=== PATIENT | female | born 1925 | race Caucasian/White ===

== ENCOUNTER 2017-02-02 17:39 | Inpatient (IN) | payer OTHER, MEDICAID, MEDICARE ==
[~2017-02-02] VITALS: Ht 160 cm; Wt 60.0 kg
[2017-02-02] VITALS (10 sets, daily range): BP systolic 159–235; BP diastolic 70–112; PULSE 71–98; RESP 17–22; TEMP 97–98.2; O2SAT 96–99
[2017-02-02] MEDS ORDERED: PARO10TA2 PO (18:02)
[2017-02-02] MEDS ORDERED: LISI-519 PO (18:02)
[2017-02-02] MEDS ORDERED: LEVO75TA3 PO (18:02)
[2017-02-02] MEDS ORDERED: SODIUM CHLOR 0.9% 1000 ML INJ 1,000 ML IV SCH (18:41)
[2017-02-02] MEDS ORDERED: SODIUM CHLORIDE 0.9% FLUSH 5 ML FLUSH IV FLUSH PRN ×2 (18:45→21:15)
--- NOTE | 2017-02-02 19:13 | PD ---
HPI Chief Complaint: Neuro Symptoms/ Deficits Time Seen by Provider: 17:52 Travel History International Travel<30 days: No Contact w/Intl Traveler<30days: No Traveled to known affect area: No History of Present Illness HPI 89-year-old female history coronary artery disease, aortic stenosis, who presents here with intermittent episodes of confusion. Patient also noted to have an elevated blood pressure. According to the family members and the patient, last Thursday had a similar episode and was taken to [facility]. At that time they found her heart rate to be normal but a blood pressure of 200 systolic and 100 diastolic. She was admitted to the hospital and blood pressure was normalized. She was doing well up until today when she had recurrent episodes. Blood pressure was checked and found to be 190 systolic and 100 diastolic. She had episode of confusion about 4 hours prior to arrival. She has resolved the episodes of confusion. [facility] Past Medical History Dementia: Yes Hypertension: Yes Thyroid Disease: Yes Past Surgical History Hysterectomy: Yes Other Surgery: Yes (plate in neck) Social History Alcohol Use: Yes Tobacco Use: No Substance Use: No Allergies-Medications (Allergen,Severity, Reaction): Coded Allergies: No Known Allergies (Unverified , 02/02/17) Reported Meds & Prescriptions Reported Meds & Active Scripts Active Reported Paroxetine (Paroxetine HCl) 10 Mg Tab 10 Mg PO DAILY Levothyroxine (Levothyroxine Sodium) 75 Mcg Tab 75 Mcg PO DAILY Lisinopril 5 Mg Tab 5 Mg PO DAILY Review of Systems Except as stated in HPI: all other systems reviewed are Neg General / Constitutional: No: Fever, Chills HENT: No: Headaches, Lightheadedness, Neck Pain Cardiovascular: Positive: Other (low heart rate found by paramedics), No: Chest Pain or Discomfort, Palpitations Respiratory: No: Cough, Shortness of Breath Gastrointestinal: No: Nausea, Vomiting Musculoskeletal: Positive: Weakness, No: Pain Neurologic: Positive: Weakness, Change in Mentation (4 hours prior resolved now.), No: Dizziness, Headache Physical Exam Narrative GENERAL: Well-developed well-nourished female in no acute rest her distress. SKIN: Focused skin assessment warm/dry. HEAD: Atraumatic. Normocephalic. EYES: No scleral icterus. No injection or drainage. ENT: No nasal bleeding or discharge. Mucous membranes pink and moist. NECK: Trachea midline. No JVD. CARDIOVASCULAR: Regular rate and rhythm. No murmur appreciated. RESPIRATORY: No accessory muscle use. Clear to auscultation. Breath sounds equal bilaterally. GASTROINTESTINAL: Abdomen soft, non-tender, nondistended. Hepatic and splenic margins not palpable. MUSCULOSKELETAL: No obvious deformities. No clubbing. No cyanosis. No edema. NEUROLOGICAL: Awake and alert. No obvious cranial nerve deficits. Motor grossly within normal limits. Normal speech. Data Data Last Documented VS Vital Signs Date Time Temp Pulse Resp B/P (MAP) Pulse Ox O2 Delivery O2 Flow Rate FiO2 02/02/17 19:57 17 97 Room Air 02/02/17 19:56 89 02/02/17 17:43 98.2 Orders Orders Electrocardiogram (02/02/17 18:41) Complete Blood Count With Diff (02/02/17 18:41) Comprehensive Metabolic Panel (02/02/17 18:41) Creatine Kinase (Cpk) (02/02/17 18:41) Prothrombin Time / Inr (Pt) (02/02/17 18:41) Act Partial Throm Time (Ptt) (02/02/17 18:41) Troponin I (02/02/17 18:41) Lactic Acid Sepsis Protocol (02/02/17 18:41) Chest, Single Ap (02/02/17 18:41) Ct Brain W/O Iv Contrast(Rout) (02/02/17 18:41) Blood Glucose (02/02/17 18:41) Ecg Monitoring (02/02/17 18:41) Iv Access Insert/Monitor (02/02/17 18:41) Oximetry (02/02/17 18:41) Sodium Chloride 0.9% Flush (Ns Flush) (02/02/17 18:45) Sodium Chlor 0.9% 1000 Ml Inj (Ns 1000 M (02/02/17 18:41) Labs Laboratory Tests Test 02/02/17 16:48 02/02/17 18:48 Lactic Acid Level 0.6 mmol/L White Blood Count 7.8 TH/MM3 Red Blood Count 4.79 MIL/MM3 Hemoglobin 14.1 GM/DL Hematocrit 41.8 % Mean Corpuscular Volume 87.2 FL Mean Corpuscular Hemoglobin 29.4 PG Mean Corpuscular Hemoglobin Concent 33.7 % Red Cell Distribution Width 14.2 % Platelet Count 313 TH/MM3 Mean Platelet Volume 7.4 FL Neutrophils (%) (Auto) 60.4 % Lymphocytes (%) (Auto) 25.4 % Monocytes (%) (Auto) 11.4 % Eosinophils (%) (Auto) 1.8 % Basophils (%) (Auto) 1.0 % Neutrophils # (Auto) 4.7 TH/MM3 Lymphocytes # (Auto) 2.0 TH/MM3 Monocytes # (Auto) 0.9 TH/MM3 Eosinophils # (Auto) 0.1 TH/MM3 Basophils # (Auto) 0.1 TH/MM3 CBC Comment DIFF FINAL Differential Comment Prothrombin Time 10.6 SEC Prothromb Time International Ratio 1.0 RATIO Activated Partial Thromboplast Time 28.3 SEC Blood Urea Nitrogen 22 MG/DL Creatinine 0.90 MG/DL Random Glucose 77 MG/DL Total Protein 7.4 GM/DL Albumin 3.6 GM/DL Calcium Level 9.0 MG/DL Alkaline Phosphatase 102 U/L Aspartate Amino Transf (AST/SGOT) 15 U/L Alanine Aminotransferase (ALT/SGPT) 21 U/L Total Bilirubin 0.4 MG/DL Sodium Level 133 MEQ/L Potassium Level 3.5 MEQ/L Chloride Level 98 MEQ/L Carbon Dioxide Level 30.3 MEQ/L Anion Gap 5 MEQ/L Estimat Glomerular Filtration Rate 59 ML/MIN Total Creatine Kinase 61 U/L Troponin I 0.04 NG/ML [facility] Medical Decision Making Medical Screen Exam Complete: Yes Emergency Medical Condition: Yes Differential Diagnosis ACS versus metabolic derangement versus anemia versus bradycardia. Narrative Course 89-year-old female presents today with altered mental status earlier prior to arrival. This has since resolved. The patient started to have a systolic blood pressure over 200 and diastolic of 100. Labs and CT have been ordered. Antihypertensive have been held off until we get her CT reading back. She'll be signed out to Dr. Nena Bernard, physician replacing me at change of shift. If CT is negative she will administer antihypertensive. I anticipate the patient will be admitted for hypertensive urgency/emergency. Diagnosis Primary Impression: Hypertensive emergency Colin Enriquez MD Feb 02, 2017 19:13
[2017-02-02 19:17] LABS: AUTOMATED NEUTROPHIL # 4.7 TH/MM3 (1.8-7.7); BASOPHIL # 0.1 TH/MM3 (0-0.2); EOSINOPHIL # 0.1 TH/MM3 (0-0.4); EOSINOPHIL % 1.8 % (0.0-4.0); HEMATOCRIT 41.8 % (35.0-46.0); HEMO FLAGS DIFF FINAL; LYMPH % 25.4 % (9.0-44.0); MEAN CELL VOLUME 87.2 FL (80.0-100.0); MEAN CORPUSCULAR HEMOGLOBIN 29.4 PG (27.0-34.0); MEAN CORPUSCULAR HGB CONC 33.7 % (32.0-36.0); MONO % 11.4 % (0.0-8.0); NEUT % 60.4 % (16.0-70.0); PLATELET COUNT 313 TH/MM3 (150-450); RED BLOOD COUNT 4.79 MIL/MM3 (4.00-5.30); RED CELL DISTRIBUTION WIDTH 14.2 % (11.6-17.2); WHITE BLOOD COUNT 7.8 TH/MM3 (4.0-11.0)
[2017-02-02 19:24] LABS: APTT (PATIENT) 28.3 SEC (24.3-30.1); PROTHROMBIN TIME - PATIENT 10.6 SEC (9.8-11.6)
[2017-02-02 19:31] LABS: ALT (GPT) 21 U/L (10-53); ANION GAP 5 MEQ/L (5-15); AST (GOT) 15 U/L (15-37); BICARBONATE 30.3 MEQ/L (21.0-32.0); BLOOD UREA NITROGEN 22 MG/DL (7-18); CHLORIDE 98 MEQ/L (98-107); GLOMERULAR FILTRATION RATE 59 ML/MIN (>89); POTASSIUM 3.5 MEQ/L (3.5-5.1); SODIUM (NA) 133 MEQ/L (136-145)
[2017-02-02 19:35] LABS: ALKALINE PHOSPHATASE 102 U/L (45-117); TOTAL BILIRUBIN ADULT 0.4 MG/DL (0.2-1.0)
[2017-02-02 19:40] LABS: CREATINE KINASE 61 U/L (26-192)
--- NOTE | 2017-02-02 19:45 | PD ---
Physical Exam Narrative General: The patient is a well-developed well-nourished female in no acute distress. Head and Neck exam: Head is normocephalic atraumatic. Eyes: EOMI, pupils are right is difficult to visualize related to cataract, left pupil is round and reactive to light. Nose: Midline septum with pink mucous membranes Mouth: Dentition unremarkable. Moist mucus membranes. Posterior oropharynx is not erythematous. No tonsillar hypertrophy. Uvula midline. Airway patent. Neck: No palpable lymphadenopathy. No nuchal rigidity. No thyromegaly. Cardiovascular: Regular rate and rhythm without murmurs, gallops, or rubs. Lungs: Clear to auscultation bilaterally. No wheezes, rhonchi, or rales. Abdomen: Soft, without tenderness to palpation in all 4 quadrants of the abdomen. No guarding, rebound, or rigidity. Normal bowel sounds are audible. No tenderness on palpation of McBurney's point. Extremities: No clubbing, cyanosis, or edema. 2+ pulses in all 4 extremities. No calf tenderness on palpation. Back: No spinous process tenderness to palpation. No costovertebral angle tenderness to palpation. Neurologic Exam: Cranial nerves 2-12 were intact on exam. Strength is 5/5 in all 4 extremities. No sensory deficits noted. Skin Exam: No rash noted. Intact skin that is warm and dry. Data Data Last Documented VS Vital Signs Date Time Temp Pulse Resp B/P (MAP) Pulse Ox O2 Delivery O2 Flow Rate FiO2 02/02/17 19:57 17 97 Room Air 02/02/17 19:56 89 02/02/17 17:43 98.2 Orders Orders Electrocardiogram (02/02/17 18:41) Complete Blood Count With Diff (02/02/17 18:41) Comprehensive Metabolic Panel (02/02/17 18:41) Creatine Kinase (Cpk) (02/02/17 18:41) Prothrombin Time / Inr (Pt) (02/02/17 18:41) Act Partial Throm Time (Ptt) (02/02/17 18:41) Troponin I (02/02/17 18:41) Lactic Acid Sepsis Protocol (02/02/17 18:41) Chest, Single Ap (02/02/17 18:41) Ct Brain W/O Iv Contrast(Rout) (02/02/17 18:41) Blood Glucose (02/02/17 18:41) Ecg Monitoring (02/02/17 18:41) Iv Access Insert/Monitor (02/02/17 18:41) Oximetry (02/02/17 18:41) Sodium Chloride 0.9% Flush (Ns Flush) (02/02/17 18:45) Sodium Chlor 0.9% 1000 Ml Inj (Ns 1000 M (02/02/17 18:41) Labetalol Inj (Trandate Inj) (02/02/17 20:15) Famotidine Inj (Pepcid Inj) (02/02/17 20:15) Aspirin (Aspirin) (02/02/17 20:30) Admit Order (Ed Use Only) (02/02/17 20:34) Labs Laboratory Tests Test 02/02/17 16:48 02/02/17 18:48 Lactic Acid Level 0.6 mmol/L White Blood Count 7.8 TH/MM3 Red Blood Count 4.79 MIL/MM3 Hemoglobin 14.1 GM/DL Hematocrit 41.8 % Mean Corpuscular Volume 87.2 FL Mean Corpuscular Hemoglobin 29.4 PG Mean Corpuscular Hemoglobin Concent 33.7 % Red Cell Distribution Width 14.2 % Platelet Count 313 TH/MM3 Mean Platelet Volume 7.4 FL Neutrophils (%) (Auto) 60.4 % Lymphocytes (%) (Auto) 25.4 % Monocytes (%) (Auto) 11.4 % Eosinophils (%) (Auto) 1.8 % Basophils (%) (Auto) 1.0 % Neutrophils # (Auto) 4.7 TH/MM3 Lymphocytes # (Auto) 2.0 TH/MM3 Monocytes # (Auto) 0.9 TH/MM3 Eosinophils # (Auto) 0.1 TH/MM3 Basophils # (Auto) 0.1 TH/MM3 CBC Comment DIFF FINAL Differential Comment Prothrombin Time 10.6 SEC Prothromb Time International Ratio 1.0 RATIO Activated Partial Thromboplast Time 28.3 SEC Blood Urea Nitrogen 22 MG/DL Creatinine 0.90 MG/DL Random Glucose 77 MG/DL Total Protein 7.4 GM/DL Albumin 3.6 GM/DL Calcium Level 9.0 MG/DL Alkaline Phosphatase 102 U/L Aspartate Amino Transf (AST/SGOT) 15 U/L Alanine Aminotransferase (ALT/SGPT) 21 U/L Total Bilirubin 0.4 MG/DL Sodium Level 133 MEQ/L Potassium Level 3.5 MEQ/L Chloride Level 98 MEQ/L Carbon Dioxide Level 30.3 MEQ/L Anion Gap 5 MEQ/L Estimat Glomerular Filtration Rate 59 ML/MIN Total Creatine Kinase 61 U/L Troponin I 0.04 NG/ML [facility] Medical Record Reviewed: Yes Supervised Visit with MARK: No Interpretation(s) Last Impressions Head CT 02/02/171840 Signed Impressions: Service Date/Time: Thursday, February 02, 2017 19:06 - CONCLUSION: 1. Chronic changes of cortical and central atrophy, severe periventricular small vessel ischemic demyelination, bilateral old lacunar type infarcts and an old watershed infarct in the left posterior parietal region. 2. Nothing acute Eugenio Aguayo MD Chest X-Ray 02/02/171840 Signed Impressions: Service Date/Time: Thursday, February 02, 2017 19:22 - CONCLUSION: 1. Hyperinflation with mild bibasilar atelectatic changes/scarring. There may be pleural parenchymal scar versus small effusions at the costophrenic angles. 2. No confluent infiltrate Eugenio Aguayo MD Narrative Course During the course of the patients emergency department visit, the patients history, examination, and differential diagnosis were reviewed with the patient. The patient was placed on a campus monitor with oximetry and frequent blood pressure monitoring. The patient had IV access obtained and blood work sent for analysis. The patient's case is checked out to me by Dr. Enriquez at the conclusion of his shift. Please see his complete history and physical. The patient came in with increased confusion. The patient reportedly according to the family has a history of mild dementia. The patient was having difficulty finding her words prior to arrival. The patient's symptoms of garbled speech have resolved on arrival to this facility. The patient was noted initially to have an elevated blood pressure at 232/112. The patient was recently admitted to the hospital at [facility] on Thursday related to similar symptoms. The patient was extremely hypertensive at that time as well. 2 days prior to being admitted to the hospital at that facility the patient was newly started on lisinopril. The patient's family reports that they were concerned that the increased confusion was related to that medication. While in the hospital, the patient was started on metoprolol, however her blood pressure continued to be elevated. The patient was again placed on lisinopril reportedly with a different name, unbeknownst to the family. They report that they discontinue the medication when she got home. Her blood pressure was repeatedly checked at home and was in the 120s systolic. The patient has not been on any blood pressure medication at home over the last several days. The family reports that at that facility the patient had a CT scan of the brain done an ultrasound of the legs. She did not have an ultrasound of the carotids or an MRI of the brain. The patient was initially provided normal saline at 125 mL per hour. Her PMH consists of TIAs, white coat syndrome, dementia-mild, hypothyroid, depression and agitation. He reports that she is not on any PCP: Dr. Lux. The patients laboratory studies were reviewed and remarkable for white count 7.8 , hemoglobin 14.1, platelets 313 with 11.4 monocytes, CMP is remarkable for a sodium of 133, BUN 22, GFR 59, lactic acid 0.6K 61, troponin I 0.04, PT 10.6, PTT 28.3. Radiology studies were reviewed and remarkable for a chest x-ray that shows no acute abnormality. Possible small pleural effusions versus pleural thickening. CT scan of the brain shows chronic changes and central atrophy, severe. Ventricular small vessel ischemic demyelinization, bilateral old lacunar type infarcts and an old watershed infarct in the left posterior parietal region. Nothing acute. The patient was given aspirin 325 mg by mouth 1. The patient was given labetalol 10 mg IV. The patients results were discussed with the patient, including the plan of care. I explained that further testing and/ or monitoring is indicated based on the patients history, examination, and/ or laboratory findings. Therefore, I recommended admission for additional evaluation. The patient expressed understanding and was agreeable with this plan. The patient was admitted to the hospital in stable condition and [facility] Physician Communication Physician Communication The patient's case including history, pertinent physical examination findings, and laboratory studies were discussed with Dr. Suazo. It was agreed that the [facility] Diagnosis Primary Impression: Hypertensive encephalopathy Admitting Information Admitting Physician Requests: Admit Patt Bernard MD Feb 02, 2017 19:45
[2017-02-02] MEDS ORDERED: LABETALOL HCL 100 MG/20 ML VIAL IV PUSH ONE (20:15)
[2017-02-02] MEDS ORDERED: FAMOTIDINE 20 MG/2 ML VIAL IV PUSH SCH (20:15)
--- NOTE | 2017-02-02 20:19 | RADRPT ---
EXAM DATE/TIME: 02/02/2017 19:06 [facility] COMPARISON: No previous studies available for comparison. INDICATIONS : Altered mental status. RADIATION DOSE: 56.35 CTDIvol (mGy) MEDICAL HISTORY : Dementia. Hypertension. SURGICAL HISTORY : None. ENCOUNTER: Initial ACUITY: 1 day PAIN SCALE: 0/10 LOCATION: cranial TECHNIQUE: Multiple contiguous axial images were obtained of the head. Using automated exposure control and adj ustment of the mA and/or kV according to patient size, radiation dose was kept as low as reasonably a chievable to obtain optimal diagnostic quality images. DICOM format image data is available electro nically for review and comparison. FINDINGS: CEREBRUM: Diffuse cortical and central atrophy. Severe periventricular small vessel ischemic demyelination with decreased periventricular attenuation. Old watershed infarct in the left posterior parietal region. Multiple old lacunar type infarcts in the basal ganglia bilaterally. No evidence of midline shift, m ass lesion, hemorrhage or acute infarction. No extra-axial fluid collections are seen. POSTERIOR FOSSA: The cerebellum and brainstem are intact. The 4th ventricle is midline. The cerebellopontine angle i s unremarkable. EXTRACRANIAL: The visualized portion of the orbits is intact. SKULL: The calvaria is intact. No evidence of skull fracture. CONCLUSION: 1. Chronic changes of cortical and central atrophy, severe periventricular small vessel ischemic demy elination, bilateral old lacunar type infarcts and an old watershed infarct in the left posterior par ietal region. 2. Nothing acute Eugenio Aguayo MD on February 02, 2017 at 20:14 Board Certified Radiologist. This report was verified electronically.
--- NOTE | 2017-02-02 20:27 | RADRPT ---
EXAM DATE/TIME: 02/02/2017 19:22 [facility] COMPARISON: No previous studies available for comparison. INDICATIONS : Patient having problems controlling blood pressure. MEDICAL HISTORY : None. SURGICAL HISTORY : None. ENCOUNTER: Initial ACUITY: 1 day PAIN SCORE: 0/10 LOCATION: Bilateral chest FINDINGS: A single view of the chest demonstrates the lungs to be symmetrically hyperinflated with bibasilar at electatic changes or scarring. There is some blunting of both costophrenic angles which could represe nt small effusions or pleural-parenchymal scarring. No confluent infiltrate. Heart size is normal. S- shaped scoliosis of the thoracolumbar spine. Anterior fixation of the lower cervical spine. CONCLUSION: 1. Hyperinflation with mild bibasilar atelectatic changes/scarring. There may be pleural parenchymal scar versus small effusions at the costophrenic angles. 2. No confluent infiltrate Eugenio Aguayo MD on February 02, 2017 at 20:24 Board Certified Radiologist. This report was verified electronically.
[2017-02-02] MEDS ORDERED: ASPIRIN 325 MG TAB PO ONE (20:30)
[2017-02-02] MEDS ORDERED: NALOXONE HCL 0.4 MG/ML AMP IV PUSH PRN (21:15)
[2017-02-02] MEDS ORDERED: LACTULOSE SYRUP 20 GM/30 ML CUP PO PRN (21:15)
[2017-02-02] MEDS ORDERED: SODIUM CHLORIDE 0.9% FLUSH 10 ML FLUSH IV FLUSH PRN (21:15)
[2017-02-02] MEDS ORDERED: MAGNESIUM HYDROXIDE SUSP 30 ML CUP PO PRN (21:15)
[2017-02-02] MEDS ORDERED: DEXTROSE 50% IN WATER 50 ML VIAL(D50) IV PUSH PRN (21:15)
[2017-02-02] MEDS ORDERED: hydrALAZINE HCL 20 MG/ML VIAL IV PUSH PRN (21:15)
[2017-02-02] MEDS ORDERED: ACETAMINOPHEN 325 MG TAB PO PRN (21:15)
[2017-02-02] MEDS ORDERED: BISACODYL 10 MG SUPP RECTAL PRN (21:15)
[2017-02-02] MEDS ORDERED: GLUCAGON 1 MG/ML VIAL OTHER PRN (21:15)
[2017-02-02] MEDS ORDERED: SENNOSIDES 8.6 MG TAB PO PRN (21:15)
[2017-02-02] MEDS ORDERED: cloNIDine HCL 0.1 MG TAB PO PRN (23:00)
[2017-02-02] MEDS: ENOXAPARIN SODIUM 40 MG/0.4 ML SYRINGE SQ SCH (23:03)
--- NOTE | 2017-02-02 23:20 | HHI.HP ---
HPI Service [facility] Primary Care Physician Unknown Admission Diagnosis Hypertensive encephalopathy vs TIA Diagnoses: Travel History International Travel<30 Days: No Contact w/Intl Traveler <30 Da: No Traveled to Known Affected Are: No History of Present Illness 89-year-old female with a past medical history significant for CAD, aortic stenosis, hypothyroidism, anxiety/depression and mild dementia presents with an elevated blood pressure and one episode of confusion. Per her granddaughter, the patient was attempting to speak but no words were coming out. She was admitting garbled words and unable to form sentences. The patient had an episode of confusion with hypertension approximately one week ago and was taken to [facility]. Her blood pressure was normalized and she was discharged to home. The patient's family was concerned that her altered mental status was secondary to receiving lisinopril, which was a new medication for her. Per the family, the patient's blood pressure was normal at home for the past week and today was elevated when she was confused. On her arrival to the emergency department, the patient's blood pressure was 232/112. She was treated with labetalol with appropriate response. 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 During our interview, the patient is appropriate and alert and oriented 3. She has no lateralizing signs. Review of Systems Denies fever or chills Denies blurry vision, otorrhea, rhinorrhea Denies sore throat and cough No chest pain, palpitations, shortness of breath No abdominal pain Denies constipation/diarrhea/nausea/vomiting Denies muscle pain/weakness No rashes Past Family Social History Past Medical History Aortic stenosis Hypertension Hypothyroidism Mild dementia Anxiety/depression Past Surgical History Neck surgery Hysterectomy Reported Medications Reported Meds & Active Scripts Active Reported Paroxetine (Paroxetine HCl) 10 Mg Tab 10 Mg PO DAILY Levothyroxine (Levothyroxine Sodium) 75 Mcg Tab 75 Mcg PO DAILY Lisinopril 5 Mg Tab 5 Mg PO DAILY Allergies: Coded Allergies: No Known Allergies (Unverified , 02/02/17) Family History Father of an NH at age 73. Social History Occasional alcohol. Never smoker. Denies illicit drugs. Physical Exam Vital Signs Vital Signs Date Time Temp Pulse Resp B/P (MAP) Pulse Ox O2 Delivery O2 Flow Rate FiO2 02/02/17 22:03 02/02/17 21:15 71 17 159/70 (99) 96 Room Air 02/02/17 20:45 78 22 165/76 (105) 97 Room Air 02/02/17 20:41 80 20 185/86 (119) 97 Room Air 02/02/17 19:57 17 97 Room Air 02/02/17 19:56 89 17 217/101 (139) 97 Room Air 02/02/17 18:54 94 235/103 (147) 02/02/17 18:02 88 18 218/93 (134) 98 Room Air 02/02/17 17:58 (152) 02/02/17 17:43 98.2 98 18 232/112 (152) 99 Physical Exam GENERAL: Elderly female lying in bed SKIN: No rashes, ecchymoses or lesions. Cool and dry. HEAD: Atraumatic. Normocephalic. No temporal or scalp tenderness. EYES: Pupils equal round and reactive. Extraocular motions intact. No scleral icterus. No injection or drainage. ENT: Nose without bleeding, purulent drainage or septal hematoma. Throat without erythema, tonsillar hypertrophy or exudate. Uvula midline. Airway patent. NECK: Trachea midline. No JVD or lymphadenopathy. Supple, nontender, no meningeal signs. CARDIOVASCULAR: Regular rate and rhythm without murmurs, gallops, or rubs. RESPIRATORY: Clear to auscultation. Breath sounds equal bilaterally. No wheezes , rales, or rhonchi. GASTROINTESTINAL: Abdomen soft, non-tender, nondistended. No hepato-splenomegaly , or palpable masses. No guarding. MUSCULOSKELETAL: Extremities without clubbing, cyanosis, or edema. No joint tenderness, effusion, or edema noted. No calf tenderness. Negative Homans sign bilaterally. NEUROLOGICAL: Awake and alert. Cranial nerves II through XII intact. Motor and sensory within normal limits. Five out of 5 muscle strength in all muscle groups. Normal speech. Laboratory Laboratory Tests Test 02/02/17 16:48 02/02/17 18:48 Lactic Acid Level 0.6 White Blood Count 7.8 Red Blood Count 4.79 Hemoglobin 14.1 Hematocrit 41.8 Mean Corpuscular Volume 87.2 Mean Corpuscular Hemoglobin 29.4 Mean Corpuscular Hemoglobin Concent 33.7 Red Cell Distribution Width 14.2 Platelet Count 313 Mean Platelet Volume 7.4 Neutrophils (%) (Auto) 60.4 Lymphocytes (%) (Auto) 25.4 Monocytes (%) (Auto) 11.4 Eosinophils (%) (Auto) 1.8 Basophils (%) (Auto) 1.0 Neutrophils # (Auto) 4.7 Lymphocytes # (Auto) 2.0 Monocytes # (Auto) 0.9 Eosinophils # (Auto) 0.1 Basophils # (Auto) 0.1 CBC Comment DIFF FINAL Differential Comment Prothrombin Time 10.6 Prothromb Time International Ratio 1.0 Activated Partial Thromboplast Time 28.3 Blood Urea Nitrogen 22 Creatinine 0.90 Random Glucose 77 Total Protein 7.4 Albumin 3.6 Calcium Level 9.0 Alkaline Phosphatase 102 Aspartate Amino Transf (AST/SGOT) 15 Alanine Aminotransferase (ALT/SGPT) 21 Total Bilirubin 0.4 Sodium Level 133 Potassium Level 3.5 Chloride Level 98 Carbon Dioxide Level 30.3 Anion Gap 5 Estimat Glomerular Filtration Rate 59 Total Creatine Kinase 61 Troponin I 0.04 Result Diagram: 02/02/17184702/02/171847 Caprini VTE Risk Assessment Caprini VTE Risk Assessment: Mod/High Risk (score >= 2) Caprini Risk Assessment Model Point Value = 1 Point Value = 2 Point Value = 3 Point Value = 5 Age 41-60 Minor surgery BMI > 25 kg/m2 Swollen legs Varicose veins or History of unexplained or recurrent spontaneous Oral contraceptives or hormone replacement Sepsis (< 1 month) Serious lung disease, including pneumonia (< 1 month) Abnormal pulmonary function Acute myocardial infarction Congestive heart failure (< 1 month) History of inflammatory bowel disease Medical patient at bed rest Age 61-74 Arthroscopic surgery Major open surgery (> 45 min) Laparoscopic surgery (> 45 min) Malignancy Confined to bed (> 72 hours) Immobilizing plaster cast Central venous access Age >= 75 History of VTE Family history of VTE Factor V Leiden Prothrombin [id number] Lupus anticoagulant Anticardiolipin antibodies Elevated serum homocysteine Heparin-induced thrombocytopenia Other congenital or acquired thrombophilia Stroke (< 1 month) Elective arthroplasty Hip, pelvis, or leg fracture Acute spinal cord injury (< 1 month) Prophylaxis Regimen Total Risk Factor Score Risk Level Prophylaxis Regimen 0-1 Low Early ambulation 2 Moderate Order ONE of the following: *Sequential Compression Device (SCD) *Heparin 5000 units SQ BID 3-4 Higher Order ONE of the following medications: *Heparin 5000 units SQ TID *Enoxaparin/Lovenox 40 mg SQ daily (WT < 150 kg, CrCl > 30 mL/min) *Enoxaparin/Lovenox 30 mg SQ daily (WT < 150 kg, CrCl > 10-29 mL/min) *Enoxaparin/Lovenox 30 mg SQ BID (WT < 150 kg, CrCl > 30 mL/min) AND/OR *Sequential Compression Device (SCD) 5 or more Highest Order ONE of the following medications: *Heparin 5000 units SQ TID (Preferred with Epidurals) *Enoxaparin/Lovenox 40 mg SQ daily (WT < 150 kg, CrCl > 30 mL/min) *Enoxaparin/Lovenox 30 mg SQ daily (WT < 150 kg, CrCl > 10-29 mL/min) *Enoxaparin/Lovenox 30 mg SQ BID (WT < 150 kg, CrCl > 30 mL/min) AND *Sequential Compression Device (SCD) Assessment and Plan Assessment and Plan 89-year-old female with past medical history significant for aortic stenosis, hypertension, hypothyroidism, mild dementia and anxiety/depression presents after an episode of dysarthria and confusion with elevated blood pressure. 1. 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 Hypertensive crisis Responded to labetalol in the emergency department Permissive HTN Clonidine when necessary Patient will likely need anti-hypertensive medication on discharge 3. Elevated troponin/abnormal EKG EKG significant for ST depression in V4-V6, no previous EKG for comparison, reviewed by me Troponin 0.04 ACS rule out pending; serial troponins/EKGs 4. Anxiety/depression/hypothyroidism Continue home medications FEN NPO NS at 75 cc/hr Electrolytes: monitor and replete prn Lovenox Physician Certification 2 Midnight Certification Type: Admission for Inpatient Services Order for Inpatient Services The services are ordered in accordance with Medicare regulations or non- Medicare payer requirements, as applicable. In the case of services not specified as inpatient-only, they are appropriately provided as inpatient services in accordance with the 2-midnight benchmark. Estimated LOS (days): 2 2 days is the estimated time the patient will need to remain in the hospital, assuming treatment plan goals are met and no additional complications. Post-Hospital Plan: Not yet determined Marisa Suazo MD Feb 02, 2017 23:20
--- NOTE | 2017-02-02 23:45 | RADRPT ---
EXAM DATE/TIME: 02/02/2017 21:15 [facility] COMPARISON: No previous studies available for comparison. INDICATIONS : Cerebrovascular accident. MEDICAL HISTORY : Hypertension. Thyroid disease. Dementia. Alcohol use. SURGICAL HISTORY : Hysterectomy. Plate in neck. ENCOUNTER: Initial ACUITY: 1 day PAIN SCORE: 0/10 LOCATION: Bilateral neck PEAK SYSTOLIC VELOCITIES (cm/sec): ICA/CCA RATIO: Right: 2.1 Left: 1.1 ICA: Right: 82.3 Left: 72.5 CCA: Right: 38.3 Left: 65.8 ECA: Right: 58.1 Left: 159.1 VERTEBRAL: Right: 47.1 antegrade Left: 44.9 antegrade Elevated flow velocities and ICA/CCA ratios have been found to correlate with increased degrees of vessel stenosis, calculated as percentage of diameter relative to a normal segment of distal ICA/CCA FINDINGS: RIGHT CAROTID: Extensive atherosclerotic plaque in the carotid bulb extending up to the bifurcation and proximal int ernal. The waveforms are within normal limits. LEFT CAROTID: Extensive vascular plaque in the carotid bulb extending up to the bifurcation and proximal internal. The waveforms are within normal limits. VERTEBRAL ARTERIES: Antegrade flow is seen in both vertebral arteries. MISCELLANEOUS: None. CONCLUSION: 1. Extensive atherosclerotic plaquing in both carotid bulbs extending up into the bifurcation. 2. Doppler velocities and ratios would suggest a mild, 50-69% stenosis in the right internal carotid artery with no significant stenosis on the left despite the dense calcification. 3. Elevated velocities in the left external carotid suggests a significant stenosis in this vessel. 4. Antegrade flow in both vertebral arteries. Eugenio Aguayo MD on February 02, 2017 at 23:41 Board Certified Radiologist. This report was verified electronically.
[2017-02-03] VITALS (11 sets, daily range): BP systolic 139–189; BP diastolic 63–78; PULSE 64–88; RESP 16–19; TEMP 97.5–98.8; O2SAT 95–97
[2017-02-03 02:13] LABS: AUTOMATED NEUTROPHIL # 4.3 TH/MM3 (1.8-7.7); BASOPHIL # 0.1 TH/MM3 (0-0.2); BASOPHIL % 0.9 % (0.0-2.0); EOSINOPHIL # 0.1 TH/MM3 (0-0.4); EOSINOPHIL % 1.4 % (0.0-4.0); HEMATOCRIT 38.4 % (35.0-46.0); HEMO FLAGS DIFF FINAL; LYMPHOCYTE # 1.8 TH/MM3 (1.0-4.8); MEAN CORPUSCULAR HEMOGLOBIN 28.4 PG (27.0-34.0); MEAN CORPUSCULAR HGB CONC 33.1 % (32.0-36.0); NEUT % 60.7 % (16.0-70.0); PLATELET COUNT 297 TH/MM3 (150-450); RED BLOOD COUNT 4.47 MIL/MM3 (4.00-5.30); WHITE BLOOD COUNT 7.1 TH/MM3 (4.0-11.0)
[2017-02-03 02:44] LABS: ANION GAP 6 MEQ/L (5-15); BICARBONATE 30.4 MEQ/L (21.0-32.0); BLOOD UREA NITROGEN 20 MG/DL (7-18); CHLORIDE 100 MEQ/L (98-107); GLOMERULAR FILTRATION RATE 58 ML/MIN (>89); POTASSIUM 3.3 MEQ/L (3.5-5.1); SODIUM (NA) 136 MEQ/L (136-145)
[2017-02-03 02:47] LABS: HDL CHOLESTEROL 63.1 MG/DL (40.0-60.0); LDL CHOLESTEROL 170 MG/DL (0-99)
[2017-02-03 02:54] LABS: CREATINE KINASE 51 U/L (26-192)
[2017-02-03] MEDS: LEVOTHYROXINE SODIUM 75 MCG TAB PO SCH (06:10)
[2017-02-03] MEDS: INSULIN ASPART SUPPLEMENTAL SCALE SQ SCH ×4 (08:00→20:57)
[2017-02-03] MEDS: SODIUM CHLORIDE 0.9% FLUSH 10 ML FLUSH IV FLUSH SCH ×2 (08:57→20:57)
[2017-02-03] MEDS: PARoxetine HCL 20 MG TAB PO SCH (08:57)
[2017-02-03] MEDS ORDERED: D5-NS + KCL 20 MEQ INJ 1,000 ML IV SCH (09:00)
[2017-02-03] MEDS ORDERED: SODIUM CHLORIDE 0.9% FLUSH 5 ML FLUSH IV FLUSH SCH (09:00)
[2017-02-03] MEDS: ASPIRIN EC 325 MG TABEC PO SCH (09:04)
--- NOTE | 2017-02-03 09:13 | HHI.PR ---
Subjective Remarks right handed female sudden onset of garbled speech , expressive aphasia awake and alert interactive denies any headaches, nausea or vomiting no weakness baseline uses a cane occasionally for ambulation baseline legally blind right Objective Vitals Vital Signs Date Time Temp Pulse Resp B/P (MAP) Pulse Ox O2 Delivery O2 Flow Rate FiO2 02/03/17 08:34 98.2 74 16 150/68 (95) 96 02/03/17 08:06 97 02/03/17 04:40 98.3 88 18 140/69 (92) 96 02/03/17 03:02 82 02/03/17 00:00 98.6 80 19 139/63 (88) 95 02/02/17 22:03 02/02/17 21:50 97.7 75 17 183/82 (115) 97 02/02/17 21:30 97.0 75 17 183/82 (115) 97 02/02/17 21:15 71 17 159/70 (99) 96 Room Air 02/02/17 20:45 78 22 165/76 (105) 97 Room Air 02/02/17 20:41 80 20 185/86 (119) 97 Room Air 02/02/17 19:57 17 97 Room Air 02/02/17 19:56 89 17 217/101 (139) 97 Room Air 02/02/17 18:54 94 235/103 (147) 02/02/17 18:02 88 18 218/93 (134) 98 Room Air 02/02/17 17:58 (152) 02/02/17 17:43 98.2 98 18 232/112 (152) 99 I/O 02/02/17 02/02/17 02/02/17 02/03/17 02/03/17 02/03/17 07:00 15:00 23:00 07:00 15:00 23:00 Intake Total 450 ml 300 ml Balance 450 ml 300 ml Intake Oral 450 ml 300 ml # Voids 1 3 # Bowel Movements 0 0 Result Diagram: 02/03/17 0145 02/03/17 0145 Imaging Last Impressions Head CT 02/02/17 184 Signed Impressions: Service Date/Time: Thursday, February 02, 2017 19:06 - CONCLUSION: 1. Chronic changes of cortical and central atrophy, severe periventricular small vessel ischemic demyelination, bilateral old lacunar type infarcts and an old watershed infarct in the left posterior parietal region. 2. Nothing acute Eugenio Aguayo MD Chest X-Ray 02/02/17 1841 Signed Impressions: Service Date/Time: Thursday, February 02, 2017 19:22 - CONCLUSION: 1. Hyperinflation with mild bibasilar atelectatic changes/scarring. There may be pleural parenchymal scar versus small effusions at the costophrenic angles. 2. No confluent infiltrate Eugenio Aguayo MD Carotid Artery Ultrasound 02/02/17 0000 Signed Impressions: Service Date/Time: Thursday, February 02, 2017 21:15 - CONCLUSION: 1. Extensive atherosclerotic plaquing in both carotid bulbs extending up into the bifurcation. 2. Doppler velocities and ratios would suggest a mild, 50-69%% stenosis in the right internal carotid artery with no significant stenosis on the left despite the dense calcification. 3. Elevated velocities in the left external carotid suggests a significant stenosis in this vessel. 4. Antegrade flow in both vertebral arteries. Eugenio Aguayo MD Objective Remarks legally blind right eye- (baseline) awake and alert, oriented x 3, speech clear right eye- opaque with cataract, left pupil reactive no nuchal rigidity, no bruit heard lungs - no rales or wheezes regular rhythm abdomen soft, nontender extremities- no edema, motor 5/5 grossly no sensory deficits CN- right eye cataract, left pupil 2-3 mmreative mild facial asymmetry tongue midline, good gag 5/5 extremities grossly no sensory deficits A/P Assessment and Plan 89 years old female history of hypertension TIA- dysarthria/ expressive aphasia- resolved R/O seizure- patient has a bite jasmyn on tip of her tongue start ASA daily do MRI/MRA- brain, carotids, Echo get EEG Neurology consult PT/OT consult Speech therapy for cognitive and swallowing evaluation Bilateral carotid stenosis on US L > R ASA daily MRA carotids. Vascular surgery consult if confirms HYpertension- on admission BP220/112- ? History of CAD/ reported BP better this am. ff BPS. on LILA as OP- started ASA restart her LILA - Lisinopril 5 mg daily Clonidine prn with parameters Echo ordered Hyperlipidemia- start statins 20 mg hs History of hypothyroidism. continue on synthroid History of Depression/anxiety continue on Paxil Lovenox for DVT prophylaxis Jaida Marti MD Feb 03, 2017 09:13
--- NOTE | 2017-02-03 09:58 | RADRPT ---
EXAM DATE/TIME: 02/03/2017 09:32 [facility] COMPARISON: No previous studies available for comparison. INDICATIONS : Slurred speech. Weakness. CVA. MEDICAL HISTORY : Hypertension. Dementia. SURGICAL HISTORY : Fusion, cervical. Hysterectomy. ENCOUNTER: Subsequent ACUITY: 2 day PAIN SCORE: 0/10 LOCATION: head. Please note a normal MRA of the brain does not entirely exclude the possibility of a small aneurysm, nor the possibility of distal intracranial vessel disease. TECHNIQUE: 3D time of flight MRA was performed. Source images, multiplanar STS MIP, and 3D volume MIP reconstru ctions were reviewed. FINDINGS: There is moderate irregularity of the proximal cerebral vascular structures and fairly symmetric fash ion with intrinsic disease appearing to involve the distal basilar and proximal posterior cerebral ar teries as well as the cavernous and supraclinoid carotid vessels and proximal MCA and HOME vessels. Th ere appears to be fairly symmetric adequate preservation of branch vessel enhancement. There is no de finite evidence of aneurysm or vascular malformation. No major vessel occlusion is visualized. CONCLUSION: Moderate presumed atherosclerotic irregularity of the cerebral vessels Jamel Padilla MD on February 03, 2017 at 9:54 Board Certified Radiologist. This report was verified electronically.
--- NOTE | 2017-02-03 10:58 | RADRPT ---
EXAM DATE/TIME: 02/03/2017 09:49 [facility] COMPARISON: No previous studies available for comparison. INDICATIONS : Bilateral leg pain. MEDICAL HISTORY : Hypertension. Dementia. Thyroid disease. SURGICAL HISTORY : Hysterectomy. Plate in neck. ENCOUNTER: Initial ACUITY: 1 day PAIN SCORE: 0/10 LOCATION: Bilateral legs. TECHNIQUE: Venous ultrasound of the left and right leg was performed from the inguinal ligament to the proximal calf. Real-time, color Doppler and spectral tracing, compression and augmentation techniques were us ed. FINDINGS: RIGHT LEG: There is normal compressibility of the deep venous system from the inguinal region to the proximal ca lf. No echogenic clot is seen in the lumen of the common femoral, femoral, popliteal, and posterior tibial veins. There is a normal response of the venous system to proximal and distal augmentation an d respiration. LEFT LEG: There is normal compressibility of the deep venous system from the inguinal region to the proximal ca lf. No echogenic clot is seen in the lumen of the common femoral, femoral, popliteal, and posterior tibial veins. There is a normal response of the venous system to proximal and distal augmentation an d respiration. CONCLUSION: 1. No sonographic evidence for lower extremity DVT. Devon Kumar MD on February 03, 2017 at 10:55 Board Certified Radiologist. This report was verified electronically.
--- NOTE | 2017-02-03 11:15 | RADRPT ---
EXAM DATE/TIME: 02/03/2017 09:32 [facility] COMPARISON: No previous studies available for comparison. INDICATIONS : Stenosis. Slurred speech and weakness. CVA. CONTRAST: 20 cc Omniscan (gadodiamide) IV MEDICAL HISTORY : Hypertension. Dementia. SURGICAL HISTORY : Hysterectomy. Fusion, cervical. ENCOUNTER: Subsequent ACUITY: 2 day PAIN SCORE: 0/10 LOCATION: neck. Percent stenosis is calculated using the diameter of the stenotic region over the diameter of the nor mal distal internal carotid artery. TECHNIQUE: Bolus infused MRA of the extracranial circulation was performed using a neurovascular coil. Post pro cessing was performed including rotating subvolume maximum intensity projections of each carotid chato ry, rotating full volume maximum intensity projections of both carotid arteries, sagittal and coronal sliding thin slab reformations of each carotid artery, and left oblique sliding thin slab reformatio n through the aortic arch to include the origin of the arch branch vessels. FINDINGS: AORTIC ARCH: There is a three vessel origin of the great vessels from the aorta. No evidence of ostial narrowing. RIGHT CAROTID: Concentric stenosis just proximal to the right carotid bifurcation in the distal right common carotid artery producing about 60% stenotic narrowing relative to the normal caliber mid common carotid chato ry and about 40% stenosis when compared to the mid right internal carotid artery. Mild changes of fib romuscular dysplasia involving the right internal carotid artery. LEFT CAROTID: Concentric stenosis just proximal to the left carotid bifurcation in the distal left common carotid a rtery producing about 70% stenotic narrowing relative to the normal caliber mid common carotid artery and about 55% stenosis when compared to the mid left internal carotid artery. Mild changes of fibrom uscular dysplasia involving the left internal carotid artery. VERTEBRALS: The vertebral arteries have a symmetric diameter. No stenotic lesions are seen. CONCLUSION: Moderate stenoses of the distal common carotid arteries bilaterally, worse on the left than the right as described in detail above. Jamel Padilla MD on February 03, 2017 at 10:51 Board Certified Radiologist. This report was verified electronically.
[2017-02-03] MEDS ORDERED: GADODIAMIDE PF 287 MG/ML 20 ML VIAL (for RAD MRI) IV PUSH ONE (11:21)
--- NOTE | 2017-02-03 12:04 | RADRPT ---
EXAM DATE/TIME: 02/03/2017 09:32 [facility] COMPARISON: CT BRAIN W/O CONTRAST, February 02, 2017, 19:06. INDICATIONS : Slurred speech. Weakness. CVA. CONTRAST: 20 cc Omniscan (gadodiamide) IV MEDICAL HISTORY : Hypertension. Dementia. SURGICAL HISTORY : Fusion, cervical. Hysterectomy. ENCOUNTER: Subsequent ACUITY: 2 day PAIN SCORE: 0/10 LOCATION: head. TECHNIQUE: Multiplanar, multisequence MRI of the brain was performed both prior to and following the administrat ion of paramagnetic contrast. FINDINGS: There is an old left parietal stroke. Small left basal ganglia lacunar infarcts which appear old. Sma ll lacunar infarct in the right hat[place] radiata. Moderate patchy T2 prolongation in the periventricula r white matter which appears chronic and benign. There is no evidence of intracranial mass or hemorrh age. As nothing to suggest acute infarction. There is mild central and cortical atrophic change. Extr acranial structures are benign and intact. There is no abnormal parenchymal contrast enhancement iden tified. Normal enhancement is present in the intracranial vascular structures. CONCLUSION: No acute intracranial findings Jamel Padilla MD on February 03, 2017 at 11:57 Board Certified Radiologist. This report was verified electronically.
[2017-02-03 13:50] LABS: BICARBONATE 28.2 MEQ/L (21.0-32.0); POTASSIUM 3.9 MEQ/L (3.5-5.1)
[2017-02-03 16:07] LABS: HEMOGLOBIN Ao 84.3 %; HEMOGLOBIN F 0.9 %; HEMOGLOBIN LA1C 2.2 %; HEMOGLOBIN P3 4.1 %
--- NOTE | 2017-02-03 17:39 | EKG ---
Date Performed: 02/02/2017 Time Performed: 19:40:05 PTAGE: 89 years EKG: Sinus rhythm LEFT ATRIAL ENLARGEMENT MODERATE ST DEPRESSION ABNORMAL ECG NO PREVIOUS TRACING DOCTOR: Tona Monsivais Interpretating Date/Time 02/03/2017 17:38:35
--- NOTE | 2017-02-03 17:40 | EKG ---
Date Performed: 02/03/2017 Time Performed: 08:39:14 PTAGE: 89 years EKG: Sinus rhythm LEFT ATRIAL ENLARGEMENT ST DEVIATION AND MODERATE T-WAVE ABNORMALITY, CONSIDER LATERAL ISCHEMIA Sinc e previous tracing, no significant change noted ABNORMAL ECG PREVIOUS TRACING : 02/02/2017 19.40 DOCTOR: Tona Monsivais Interpretating Date/Time 02/03/2017 17:38:51
--- NOTE | 2017-02-03 18:24 | MB ---
cc: SONIA TAMAYO M.D. DATE OF CONSULTATION 02/03/2017 REASON FOR CONSULTATION She is an 89-year-old seen in regards to possible TIA. HISTORY OF THE PRESENT ILLNESS The daughter is at bedside and provides history. The patient herself is able to provide some history. There is some mild memory loss but nothing major. Yesterday the patient had a recurrent episode of confusion, difficulty with her speech and this was associated with an elevated blood pressure. Somewhat similar episode happened a week ago and she was treated at [facility] and started on antihypertensive medication. At that time there was some confusion whether not the problem was due to medication lisinopril which was a new medication. PAST MEDICAL HISTORY 1. She has a history of some aortic stenosis. 2. And anxiety. MEDICATIONS 1. She takes Paxil. 2. Levothyroxine. 3. Lisinopril. NEUROLOGICAL EXAMINATION On exam the patient is alert, pleasant, cooperative. She is grossly oriented. She provides some history of relatively mild difficulty as discussed. She has a right eye opacification from corneal disease and she is blind there. Left eye moves in all direction and she was able to count fingers bilaterally, the pupil is reactive. She has some hearing loss. There is no hemiparesis and she is moving arms and legs well on the bedside exam. Reflexes were 1+, plantar responses were flexor. IMAGING The patient had an MRI of brain showing no acute abnormality. The MRA head and neck showed some moderate atherosclerotic disease but no significant stenosis of a more severe form. Resume antiplatelet therapy. Blood pressure management and the goal will be to maintain a reasonable blood pressure for her age. Hyperlipidemia management, the goal would be to lower her LDL below 70. She is currently on atorvastatin 20 mg as well as aspirin 325 mg. No other neurologic intervention at this point and she probably can be discharged home in the morning if remains stable over the night, outpatient neurological care. MD ALTA Hairston/MIC /5:33 PM /5:55 PM
--- NOTE | 2017-02-03 19:21 | PD.VS.CON ---
History of Present Illness Chief Complaint: slurred speech Consult Requested by: medical service History of Present Illness 89 yo female who was admitted as a "stroke alert" for inability to speak and "garbled words". This was transient and the patient notes that her BP was markedly elevated at that time. No prior such events and no lateralizing symptoms. At present, she is back to baseline and has no neurological dysfunction. She is actually remarkably healthy. Past/Family/Social History Past Medical History HTN hypothyroidism Past Surgical History SONJA Social History nonsmoker Family History NC Home Medications Reported Medications Paroxetine (Paroxetine) 10 Mg Tab, 10 MG PO DAILY, #30 TAB 0 Refills 02/02/17 Levothyroxine (Levothyroxine) 75 Mcg Tab, 75 MCG PO DAILY for Thyroid, #30 TAB 0 Refills 02/02/17 Lisinopril (Lisinopril) 5 Mg Tab, 5 MG PO DAILY for Blood Pressure Management, # 30 TAB 0 Refills 02/02/17 Coded Allergies: No Known Allergies (Unverified , 02/02/17) Review of Systems Cardiovascular: DENIES: Chest pain Neurologic: COMPLAINS OF: Speech Problems Physical Exam Vitals/I&O Date Time Temp Pulse Resp B/P (MAP) Pulse Ox O2 Delivery O2 Flow Rate FiO2 02/03/17 16:49 98.4 72 17 155/67 (96) 97 02/03/17 16:39 82 02/03/17 12:24 97.5 64 16 189/78 (115) 95 02/03/17 11:03 75 02/03/17 08:34 98.2 74 16 150/68 (95) 96 02/03/17 08:06 97 02/03/17 04:40 98.3 88 18 140/69 (92) 96 02/03/17 03:02 82 02/03/17 00:00 98.6 80 19 139/63 (88) 95 02/02/17 22:03 02/02/17 21:50 97.7 75 17 183/82 (115) 97 02/02/17 21:30 97.0 75 17 183/82 (115) 97 02/02/17 21:15 71 17 159/70 (99) 96 Room Air 02/02/17 20:45 78 22 165/76 (105) 97 Room Air 02/02/17 20:41 80 20 185/86 (119) 97 Room Air 02/02/17 19:57 17 97 Room Air 02/02/17 19:56 89 17 217/101 (139) 97 Room Air 02/03/17 02/03/17 02/03/17 06:59 14:59 22:59 Intake Total 300 ml 240 ml Balance 300 ml 240 ml Neuro: alert, oriented, acts younger than her stated age HEENT: NC/AT; anicteric sclera; EOMI Neck: no JVD Heart: reg rate Lungs: clear B Vascular: palpable UE pulses, symmetric Extremities: CHILDS w/ 5/5 strength Laboratory Tests Test 02/03/17 01:45 02/03/17 07:39 02/03/17 13:03 White Blood Count 7.1 Red Blood Count 4.47 Hemoglobin 12.7 Hematocrit 38.4 Mean Corpuscular Volume 86.0 Mean Corpuscular Hemoglobin 28.4 Mean Corpuscular Hemoglobin Concent 33.1 Red Cell Distribution Width 14.0 Platelet Count 297 Mean Platelet Volume 6.9 Neutrophils (%) (Auto) 60.7 Lymphocytes (%) (Auto) 26.0 Monocytes (%) (Auto) 11.0 Eosinophils (%) (Auto) 1.4 Basophils (%) (Auto) 0.9 Neutrophils # (Auto) 4.3 Lymphocytes # (Auto) 1.8 Monocytes # (Auto) 0.8 Eosinophils # (Auto) 0.1 Basophils # (Auto) 0.1 CBC Comment DIFF FINAL Differential Comment Blood Urea Nitrogen 20 18 Creatinine 0.91 0.83 Random Glucose 115 89 Calcium Level 8.6 8.4 Sodium Level 136 133 Potassium Level 3.3 3.9 Chloride Level 100 97 Carbon Dioxide Level 30.4 28.2 Anion Gap 6 8 Estimat Glomerular Filtration Rate 58 65 Total Creatine Kinase 51 57 Troponin I 0.04 0.03 Triglycerides Level 102 Cholesterol Level 253 LDL Cholesterol 170 HDL Cholesterol 63.1 Cholesterol/HDL Ratio 4.00 Thyroid Stimulating Hormone 3rd Gen 0.871 Last 48 hours Impressions Neck Magnetic Resonance Angiography 02/03/17 0000 Signed Impressions: Service Date/Time: Friday, February 03, 2017 09:32 - CONCLUSION: Moderate stenoses of the distal common carotid arteries bilaterally, worse on the left than the right as described in detail above. Jamel Padilla MD Lower Extremity Ultrasound 02/03/17 0000 Signed Impressions: Service Date/Time: Friday, February 03, 2017 09:49 - CONCLUSION: 1. No sonographic evidence for lower extremity DVT. Devon Kumar MD Head Magnetic Resonance Angiography 02/03/17 0000 Signed Impressions: Service Date/Time: Friday, February 03, 2017 09:32 - CONCLUSION: Moderate presumed atherosclerotic irregularity of the cerebral vessels Jamel Padilla MD Brain MRI 02/03/17 0000 Signed Impressions: Service Date/Time: Friday, February 03, 2017 09:32 - CONCLUSION: No acute intracranial findings Jamel Padilla MD Head CT [id number]/02/[id number] Signed Impressions: Service Date/Time: Thursday, February 02, 2017 19:06 - CONCLUSION: 1. Chronic changes of cortical and central atrophy, severe periventricular small vessel ischemic demyelination, bilateral old lacunar type infarcts and an old watershed infarct in the left posterior parietal region. 2. Nothing acute Eugenio Aguayo MD Chest X-Ray [id number]/02/[id number] Signed Impressions: Service Date/Time: Thursday, February 02, 2017 19:22 - CONCLUSION: 1. Hyperinflation with mild bibasilar atelectatic changes/scarring. There may be pleural parenchymal scar versus small effusions at the costophrenic angles. 2. No confluent infiltrate Eugenio Aguayo MD Carotid Artery Ultrasound 02/02/17 Signed Impressions: Service Date/Time: Thursday, February 02, 2017 21:15 - CONCLUSION: 1. Extensive atherosclerotic plaquing in both carotid bulbs extending up into the bifurcation. 2. Doppler velocities and ratios would suggest a mild, 50-69%% stenosis in the right internal carotid artery with no significant stenosis on the left despite the dense calcification. 3. Elevated velocities in the left external carotid suggests a significant stenosis in this vessel. 4. Antegrade flow in both vertebral arteries. Eugenio Aguayo MD Assessment and Plan Plan I don't think her recent events represented a true ischemic stroke and certainly she looks great now. Her carotid duplex velocities are c/w <50% stenosis B ICA and the MRA is unimpressive except for mild plaque in the CCA. I think that her best option is medical management at present, including ASA and statin, both of which she is on. I will arrange f/u in my clinic in about a month, but I doubt she will ever need a carotid intervention. Discussed with the patient who agrees. Quintin Sánchez MD FACS RPVI disk recoater [facility] - Heart and Vascular Surgery at [facility] [phone] Quintin Sánchez MD Feb 03, 2017 19:21
--- NOTE | 2017-02-03 20:34 | MG ---
cc: NIMO CASTILLO MD Lab No: [id number] Date: 02/03/17 Age: Sex: F Race: 1925 An 89-year-old female, history of episodes of confusion, speech impairment Posterior rhythm demonstrating 5-6 Hz activity, 20-50 microvolts frontal theta. Rhythmic slow theta bursts epoch 26, bursts of generalized delta theta slowing. Very background rhythm 5-6 Hz on the right. Reduced driving with photic stimulation. Single lead EKG showing sinus rhythm. Mild encephalopathy in drowsy state. No active seizures. Clinical correlation. MD LA Siddiqi/ /7:56 PM /8:22 PM
[2017-02-03] MEDS: ENOXAPARIN SODIUM 40 MG/0.4 ML SYRINGE SQ SCH (20:52)
[2017-02-03] MEDS ORDERED: ATORVASTATIN 20 MG TAB PO SCH (21:00)
[2017-02-04] VITALS: BP 144/64; PULSE 64; RESP 22; TEMP 97.9; O2SAT 98
[2017-02-04 05:30] VITALS: BP 139/64; PULSE 66; RESP 19; TEMP 98.1; O2SAT 98
[2017-02-04] MEDS: LEVOTHYROXINE SODIUM 75 MCG TAB PO SCH (05:33)
[2017-02-04 07:22] LABS: BICARBONATE 27.6 MEQ/L (21.0-32.0)
[2017-02-04] MEDS: INSULIN ASPART SUPPLEMENTAL SCALE SQ SCH ×2 (08:00→12:00)
[2017-02-04] MEDS: SODIUM CHLORIDE 0.9% FLUSH 10 ML FLUSH IV FLUSH SCH (08:45)
[2017-02-04] MEDS: PARoxetine HCL 20 MG TAB PO SCH (08:46)
[2017-02-04] MEDS: ASPIRIN EC 325 MG TABEC PO SCH (08:47)
[2017-02-04] MEDS ORDERED: LISINOPRIL 5 MG TAB PO SCH (09:00)
[2017-02-04 09:01] VITALS: BP 176/76; PULSE 74; RESP 16; TEMP 98; O2SAT 96
[2017-02-04] MEDS ORDERED: ATOR20TA15 PO (11:42)
[2017-02-04] MEDS ORDERED: ASPI325T33 PO (11:42)
--- NOTE | 2017-02-04 11:44 | HHI.DCPOC ---
Discharge Care Plan Diagnosis: (1) Hypothyroidism (2) Hypertension (3) TIA (transient ischemic attack) (4) Hypertensive encephalopathy (5) Carotid artery disease Goals to Promote Your Health * To prevent worsening of your condition and complications * To maintain your health at the optimal level Directions to Meet Your Goals Take your medications as prescribed Follow your dietary instruction Follow activity as directed Keep your appointments as scheduled Take your immunizations and boosters as scheduled If your symptoms worsen call your PCP, if no PCP go to Urgent Care Center or Emergency Room Smoking is Dangerous to Your Health. Avoid second hand smoke Call the 24-hour hour crisis hotline for domestic abuse at Hawa Davies MD Feb 04, 2017 11:44
--- NOTE | 2017-02-04 11:45 | HHI.DS ---
Discharge Summary Admission Date Feb 02, 2017 at 20:36 Admitting Diagnosis Hypertensive encephalopathy vs TIA Brief History - From Admission 89-year-old female with a past medical history significant for CAD, aortic stenosis, hypothyroidism, anxiety/depression and mild dementia presents with an elevated blood pressure and one episode of confusion. Per her granddaughter, the patient was attempting to speak but no words were coming out. She was admitting garbled words and unable to form sentences. The patient had an episode of confusion with hypertension approximately one week ago and was taken to [facility]. Her blood pressure was normalized and she was discharged to home. The patient's family was concerned that her altered mental status was secondary to receiving lisinopril, which was a new medication for her. Per the family, the patient's blood pressure was normal at home for the past week and today was elevated when she was confused. On her arrival to the emergency department, the patient's blood pressure was 232/112. She was treated with labetalol with appropriate response. 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 During our interview, the patient is appropriate and alert and oriented 3. She has no lateralizing signs. CBC/BMP: 02/03/17 0145 02/04/17 0620 Significant Findings Laboratory Tests Test 02/02/17 16:48 02/02/17 18:48 02/03/17 01:45 02/03/17 07:39 Monocytes (%) (Auto) 11.4 % (0.0-8.0) 11.0 % (0.0-8.0) Blood Urea Nitrogen 22 MG/DL (7-18) 20 MG/DL (7-18) Sodium Level 133 MEQ/L (136-145) Estimat Glomerular Filtration Rate 59 ML/MIN (>89) 58 ML/MIN (>89) Mean Platelet Volume 6.9 FL (7.0-11.0) Random Glucose 115 MG/DL (74-106) Potassium Level 3.3 MEQ/L (3.5-5.1) Cholesterol Level 253 MG/DL (120-200) LDL Cholesterol 170 MG/DL (0-99) HDL Cholesterol 63.1 MG/DL (40.0-60.0) Test 02/03/17 13:03 02/04/17 06:20 Calcium Level 8.4 MG/DL (8.5-10.1) 8.4 MG/DL (8.5-10.1) Sodium Level 133 MEQ/L (136-145) Chloride Level 97 MEQ/L (98-107) Estimat Glomerular Filtration Rate 65 ML/MIN (>89) 65 ML/MIN (>89) PE at Discharge legally blind right eye- (baseline) awake and alert, oriented x 3, speech clear right eye- opaque with cataract, left pupil reactive no nuchal rigidity, no bruit heard lungs - no rales or wheezes regular rhythm abdomen soft, nontender extremities- no edema, motor 5/5 grossly no sensory deficits CN- right eye cataract, left pupil 2-3 mmreative mild facial asymmetry tongue midline, good gag 5/5 extremities grossly no sensory deficits Pt Condition on Discharge: Good Discharge Disposition: Disch w/ Home Health Serv Discharge Instructions DIET: Follow Instructions for: Heart Healthy Diet Speech Therapy-Diet Recommends: Regular Activities you can perform: Regular-No Restrictions Hawa Davies MD Feb 04, 2017 11:45
--- NOTE | 2017-02-04 11:45 | HHI.FF ---
Face to Face Verification Diagnosis: (1) TIA (transient ischemic attack) (2) Hypertension (3) Hypothyroidism (4) Hypertensive encephalopathy Physical Therapy Order: Evaluate and Treat, Improve ambulation, Strength and gait training Home Health Nursing Order: Medical education Signs/symptoms of disease process Medication education-adverse effect I have seen patient Maribel Francisco on 02/04/17. My clinical findings support the need for the requested home health care services because: Deconditioned w/ increased weakness Need for psychosocial assistance I certify that my clinical findings support that this patient is homebound because: Unsteady gait/balance Hawa Davies MD Feb 04, 2017 11:45
[2017-02-04 12:04] VITALS: BP 167/71; PULSE 72; RESP 16; TEMP 97.2; O2SAT 97
[2017-02-04 12:11] VITALS: PULSE 64
--- NOTE | 2017-02-04 13:53 | ECHRPT ---
Indication: cva/tia CONCLUSIONS Normal left ventricular size. Severe concentric left ventricular hypertrophy. The left ventricular systolic function is normal with an estimated ejection fraction in the range of 55-60%. Mitral annular calcification is present. Trace mitral valve regurgitation. Trace aortic valve regurgitation. Aortic valve sclerosis is present. There is a small pericardial effusion present. No hemodynamically significant echocardiographic features were observed (no pre-tamponade physiology). BP: 150 / 68 HR: 74 Rhythm: MEASUREMENTS (Male / Female) Normal Values Technical Quality:Good 2D ECHO LV Diastolic Diameter PLAX 3.9 cm 4.2 - 5.9 / 3.9 - 5.3 cm LV Systolic Diameter PLAX 2.8 cm IVS Diastolic Thickness 1.8 cm 0.6 - 1.0 / 0.6 - 0.9 cm LVPW Diastolic Thickness 1.0 cm 0.6 - 1.0 / 0.6 - 0.9 cm LV Relative Wall Thickness 0.7 RV Internal Dim ED PLAX 1.9 cm M-MODE Aortic Root Diameter MM 3.2 cm AV Cusp Separation MM 2.1 cm DOPPLER AV Peak Velocity 145.0 cm/s AV Peak Gradient 8.4 mmHg LVOT Peak Velocity 120.0 cm/s LVOT Peak Gradient 5.8 mmHg MV Peak Velocity 165.0 cm/s MV Peak Gradient 10.9 mmHg MV Mean Velocity 80.6 cm/s MV Mean Gradient 3.0 mmHg Mitral E Point Velocity 63.5 cm/s Mitral A Point Velocity 143.0 cm/s Mitral E to A Ratio 0.4 TR Peak Velocity 281.0 cm/s TR Peak Gradient 31.6 mmHg Right Atrial Pressure 5.0 mmHg Pulmonary Artery Systolic Pressu 36.6 mmHg Right Ventricular Systolic Press 36.6 mmHg FINDINGS LEFT VENTRICLE Normal left ventricular size. Severe concentric left ventricular hypertrophy. The left ventricular systolic function is normal with an estimated ejection fraction in the range of 55-60%. RIGHT VENTRICLE Normal right ventricular size and systolic function. LEFT ATRIUM The left atrial size is normal. RIGHT ATRIUM The right atrial size is normal. ATRIAL SEPTUM Normal atrial septal thickness without atrial level shunting by limited color doppler interrogation. AORTA The aortic root and proximal ascending aorta are normal in size on limited imaging. MITRAL VALVE Mitral annular calcification is present. Trace mitral valve regurgitation. AORTIC VALVE Trace aortic valve regurgitation. Aortic valve sclerosis is present. TRICUSPID VALVE Structurally normal tricuspid valve. No tricuspid valve stenosis or regurgitation. PULMONARY VALVE No pulmonary valve regurgitation or stenosis. VESSELS The inferior vena cava is normal in size. PERICARDIUM There is a small pericardial effusion present. No hemodynamically significant echocardiographic features were observed (no pre-tamponade physiology). Amarjit Vidal MD, FACC, [facility] (Electronically Signed) Final Date:04 February 2017 13:53
== END 2017-02-04 12:56 | disposition home health service (06) | DRG 78 ==
LOC: NEPE 17:39 → NEDA 20:36 → N05A 22:04
PROVIDERS: ADMIT Family Medicine; ATTEND Family Medicine
DX: I67.4 Hypertensive encephalopathy (principal); I16.9 Hypertensive crisis, unspecified; G45.9 Transient cerebral ischemic attack, unspecified; F03.90 Unspecified dementia, unspecified severity, without behavioral disturbance, psychotic disturbance, mood disturbance, and anxiety; I35.0 Nonrheumatic aortic (valve) stenosis; R47.01 Aphasia; I10 Essential (primary) hypertension; I25.10 Atherosclerotic heart disease of native coronary artery without angina pectoris; Z86.73 Personal history of transient ischemic attack (TIA), and cerebral infarction without residual deficits; E03.9 Hypothyroidism, unspecified; F32.9 Major depressive disorder, single episode, unspecified; F41.9 Anxiety disorder, unspecified; Z82.49 Family history of ischemic heart disease and other diseases of the circulatory system; R47.1 Dysarthria and anarthria; R74.8 Abnormal levels of other serum enzymes; H91.90 Unspecified hearing loss, unspecified ear; E78.5 Hyperlipidemia, unspecified; H54.8 Legal blindness, as defined in USA
CPT/HCPCS: 70450; 70544; 70548; 70553; 71010; 80048; 80053; 80061; 82550; 82948; 83036; 83605; 84443; 84484; 85025; 85610; 85730; 93005; 93306; 93880; 93970; 94620; 95819; 96360; A9579; J1650; J7030